=== PATIENT | female | born 1940 | race Caucasian/White ===

== ENCOUNTER → 2017-09-17 09:10 | Outpatient (CLI) | payer MEDICARE, SELFPAY ==
[2017-09-17 13:39] LABS: Basophils % 0.5 % (0.1-2.0); Eosinophils # 0.2 K/mm3 (0.0-0.4); Eosinophils % 3.1 % (0.1-12.0); Hematocrit 42.3 % (37.0-47.0); Hemoglobin 13.1 g/dL (12.2-16.2); Lymphocytes # 2.1 K/mm3 (0.7-4.5); Lymphocytes % 27.1 K/mm3 (10-50); Mean Corpuscular HGB Conc 30.9 g/dL (31.8-35.4); Mean Corpuscular Hemoglobin 29.2 pg (27.0-31.2); Mean Corpuscular Volume 94.6 fl (81-99); Mean Platelet Volume 8.6 fl (7.4-10.4); Monocytes # 0.6 K/mm3 (0.1-1.0); Monocytes % 7.6 % (1.7-9.3); Neutrophils # 4.8 K/mm3 (1.8-7.8); Neutrophils % 61.7 % (37.0-80.0); Platelet Count 346 K/mm3 (142-424); Red Blood Count 4.47 M/mm3 (4.20-5.40); Red Cell Distribution Width 12.1 % (11.5-17.5); White Blood Count 7.8 K/mm3 (4.8-10.8)
[2017-09-17 13:58] LABS: Alanine Aminotransferase 22 U/L (12-78); Albumin Level 3.8 gm/dL (3.4-5.0); Albumin/Globulin Ratio 0.9 (1.1-1.8); Alkaline Phosphatase 78 U/L (46-116); Anion Gap 16.3 mEq/L (5-15); Aspartate Amino Transferase 22 U/L (15-37); Bilirubin,Total 0.4 mg/dL (0.2-1.0); Blood Urea Nitrogen 19 mg/dL (7-18); Calcium 9.4 mg/dL (8.5-10.1); Carbon Dioxide 24 mmol/L (21.0-32.0); Chloride 105 mmol/L (98-107); Creatinine,Serum 0.99 mg/dL (0.55-1.02); Estimated Glomerular Filt Rate 55 ml/min (>60); GFR (African American) 66 ML/MIN (>60); Globulin 4.1 gm/dl (1.3-3.2); Glucose 121 mg/dL (74-106); Potassium 4.3 mmoL/L (3.5-5.1); Sodium 141 mmol/L (136-145); Total Protein,Serum 7.9 gm/dL (6.4-8.2)
[2017-09-18 08:29] LABS: Immunoglobulin A, Qn 320 mg/dL (64-422); Immunoglobulin G, Qn 1476 mg/dL (700-1600)
[2017-09-19 06:44] LABS: Immunoglobulin M, Qn 45 mg/dL (26-217)
[2017-09-19 09:17] LABS: Peripheral Smear Review Scanned Result
== END ==
PROVIDERS: PCP Nurse Practitioner Family; Visit Provider Nurse Practitioner Family
DX: R59.9 Enlarged lymph nodes, unspecified (principal)
CPT/HCPCS: 36415; 80053; 82784; 85025

== ENCOUNTER → 2018-01-21 08:50 | Outpatient (POV) | payer MEDICARE, SELFPAY | PROVIDERS: Visit Provider Nurse Practitioner Acute Care | DX: Z00.00 Encounter for general adult medical examination without abnormal findings (principal) ==

== ENCOUNTER → 2018-04-22 09:29 | Outpatient (POV) | payer MEDICARE, SELFPAY | PROVIDERS: Visit Provider Nurse Practitioner Acute Care | DX: Z00.00 Encounter for general adult medical examination without abnormal findings (principal) ==

== ENCOUNTER → 2018-11-04 08:47 | Outpatient (POV) | payer MEDICARE, SELFPAY | PROVIDERS: Visit Provider Nurse Practitioner Family | DX: Z00.00 Encounter for general adult medical examination without abnormal findings (principal) ==

== ENCOUNTER → 2023-05-24 10:07 | Outpatient (POV) | payer MEDICARE, SELFPAY ==
[2023-05-24 11:02] VITALS: BP 121/87; PULSE 114; RESP 18; O2SAT 99; BMI 26.5
--- NOTE | 2023-05-24 13:18 | EXP.PAIN.OV ---
HPI Data of Consult Patient: new to practice Consult date: 05/24/23 Requesting Physician: Lisbeth Rodriges APRN Primary Care Provider: Hiwot Sarah Consult Narrative Reason for consult: Neck/shoulder pain, low back pain, left hip pain, left leg pain History of present illness: Ms. Cabello is a 83 year old female who presents today as a new patient. She is a referral from Hiwot Sarah's office. Today she rates her pain a 9 out of 10. Patient states her pain is throughout multiple locations including her neck, bilateral shoulders, low back, left hip and left leg. Patient states this has been going on for years unrelated to any specific trauma or injury. 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 Patient does describe this as an aching, throbbing sensation with occasional sharp shooting pains and numbness and tingling. Patient states the pain gets so bad that she does get sick to her stomach. Over the years she has tried Tylenol and ibuprofen along with heat and ice and topicals with no additional relief. Patient has had multiple sessions of physical therapy however this just aggravated and made her symptoms worse. Patient does state the pain interferes with her related to perform activities of daily living such as cooking and cleaning or even sleeping. Patient states that she has had previous fusions in both her neck and her back done by Dr. Danielson. Patient also states she was seeing [facility] for her bilateral shoulder pain who had done x-rays and had talked about possibly doing surgical intervention. Patient states that her PCP was not recommending procedure however and states that she does not need any additional surgeries due to not healing as well due to her age. Patient does state that she did just have a cervical fusion earlier this year and it went fine. Patient does state that she has significant difficulty performing range of motion due to her multiple pain areas. She also states that she is a diabetic and has had injections in the past however they did not typically help as well but they frequently cause her sugar to go up. Patient is interested in any help we may be able to provide. She is prescribed gabapentin 300 mg 3 times a day from her PCP. Her Talat has been reviewed and is appropriate. CC: Lisbeth Rodriges APRN [facility] Disclaimer: The information contained in this section may have been updated after the patient was seen, as this information can be updated by other users. Medical History (Updated 05/24/23 @ 13:28 by Lisbeth Rodriges APRN) Diabetes History of stent insertion of renal artery HLD (hyperlipidemia) HTN (hypertension) Hypothyroidism Osteoarthritis Restless leg syndrome Surgical History (Updated 05/24/23 @ 10:26 by Sophia Vega RN) History of cholecystectomy Previous back surgery Family History (Updated 05/24/23 @ 10:26 by Sophia Vega RN) Other Unknown family medical history Social History Smoking Status: Unknown if ever smoked alcohol intake: never current occupational status: retired Travel in the last 8 weeks: None caffeine: No Review of Systems Review of Systems Review of systems:: pertinent systems reviewed and negative unless documented below Review of systems (narrative): Review of Systems: General: No recent weight changes, no fever, no sleep disturbances Respiratory: No cough, no shortness of air, no recurring pulmonary infections Cardiovascular/peripheral vascular: No chest pain, no palpitations, no edema, no shortness of breath Gastrointestinal: No new onset incontinence, normal bowel movements reported Genitourinary: No new onset incontinence Musculoskeletal: Neck pain, shoulder pain, low back pain, left hip pain, left leg pain Psychiatric: [Normal mood/affect] Neurological: [Denies weakness in extremities], [denies balance issues] Meds Home Medications and Allergies
== END ==
PROVIDERS: PCP Nurse Practitioner Family; Visit Provider Nurse Practitioner Family
DX: G89.4 Chronic pain syndrome; M25.511 Pain in right shoulder; M25.512 Pain in left shoulder; M25.552 Pain in left hip; M50.10 Cervical disc disorder with radiculopathy, unspecified cervical region; M51.16 Intervertebral disc disorders with radiculopathy, lumbar region
CPT/HCPCS: 99202; G0463

== ENCOUNTER → 2023-06-21 10:09 | Outpatient (POV) | payer MEDICARE, SELFPAY ==
--- NOTE | 2023-06-21 10:51 | A.OFFVIS_ITS ---
[facility] Pain Management SOAP Note Subjective:: Patient is a pleasant 83-year-old female who presents today for follow-up. We are currently treating the patient for degenerative disc disease of cervical and lumbar spine with cervical and lumbar radiculopathy symptoms, left hip pain, bilateral shoulder pain, chronic pain syndrome. Today she rates her pain a 10 out of 10. Patient denies any new trauma or injury from our last visit. She states she continues to have chronic pain in her bilateral shoulders neck and low back. Patient does describe this as a aching, throbbing sensation with occasional sharp shooting pains and numbness and tingling. Patient has had previous cervical surgery just in March and did well from this however continues to have pain. Patient was seeing [facility] and had gotten intra-articular injections however this caused her sugar to go up into the 170s and that her PCP told her not to have anything done additionally. Patient states that her primary care provider has also recommended that she not have any surgery due to slowed healing related to her diabetes. At her last visit we did send for a psych eval for possible spinal cord stimulator or pain pump trial however she states she has not heard from this office. Patient states that her pain interferes with her ability perform activities of daily living and that she is interested in anything we can help with. Patient denies any recent lumbar imaging however states that Dr. Danielson's office does have cervical imaging. Patient does states she has a history of stents in her kidneys and that often times medications cause upset stomach and she feels very nauseated. Her Talat has been reviewed and is appropriate. Review of Systems: General: No recent weight changes, no fever, no sleep disturbances Respiratory: No cough, no shortness of air, no recurring pulmonary infections Cardiovascular/peripheral vascular: No chest pain, no palpitations, no edema, no shortness of breath Gastrointestinal: No new onset incontinence, normal bowel movements reported Genitourinary: No new onset incontinence Musculoskeletal: Bilateral shoulder pain, neck pain, low back pain Psychiatric: [Normal mood/affect] Neurological: [Denies weakness in extremities], [denies balance issues] Objective:: Physical Exam: General: Alert and oriented x3, no acute distress, pleasant and cooperative Lungs: Respirations even and unlabored, symmetrical chest expansion Eyes: PERRL Musculoskeletal: Flexion and extension of lumbar [spine] somewhat guarded secondary to pain, [antalgic gait noted] Neurological: Speech clear, no gross sensory deficit Assessment:: Degenerative disc disease of cervical and lumbar spine with cervical and lumbar radiculopathy symptoms, bilateral shoulder pain, left hip pain, chronic pain syndrome Plan:: Patient continues to experience significant pain in multiple areas. I have discussed with the patient that I do still believe that she would benefit from a spinal cord stimulator trial or intrathecal pain pump trial. I have counseled the patient to talk with her family as well as her primary care provider regarding what is in her best interest with her health history and chronic pain symptoms. I will send in a 14-day supply of [place] 5 mg daily and Zofran 4 mg with 30 tablets as needed. Patient will return to clinic in 2 weeks for reevaluation of symptoms and plan of care We will contact [facility] to get a copy of her cervical imaging. Patient has been advised of risks of oversedation with the prescribed medication. Narcan has been offered to the patient in the event of oversedation. Patient has been advised that a family member should also be educated regarding administration of Narcan. Patient has been instructed to contact the clinic with any concerns before the next appointment. Dr. Kay has reviewed this note and agrees with this plan of care. This note was dictated using voice recognition software and make contain errors or omissions. [facility] Disclaimer: The information contained in this section may have been updated after the pat ient was seen, as this information can be updated by other users. Medical History (Updated 05/24/23 @ 13:28 by Lisbeth Rodriges APRN) Diabetes History of stent insertion of renal artery HLD (hyperlipidemia) HTN (hypertension) Hypothyroidism Osteoarthritis Restless leg syndrome Surgical History (Updated 05/24/23 @ 10:26 by Sophia Vega RN) History of cholecystectomy Previous back surgery Family History (Updated 05/24/23 @ 10:26 by Sophia Vega RN) Other Unknown family medical history Social History (Updated 05/24/23 @ 13:30 by Lisbeth Rodriges APRN) Smoking Status: Unknown if ever smoked alcohol intake: never current occupational status: retired Travel in the last 8 weeks: None caffeine: No
[2023-06-21 12:09] VITALS: BP 127/72; PULSE 114; RESP 18; O2SAT 96; BMI 24.4
== END | disposition home or self-care (01) ==
PROVIDERS: PCP Nurse Practitioner Family; Visit Provider Nurse Practitioner Family
DX: M50.10 Cervical disc disorder with radiculopathy, unspecified cervical region (principal); M51.16 Intervertebral disc disorders with radiculopathy, lumbar region; M25.511 Pain in right shoulder; M25.512 Pain in left shoulder; M25.552 Pain in left hip; G89.4 Chronic pain syndrome
CPT/HCPCS: 99212; G0463

== ENCOUNTER → 2023-07-05 09:28 | Outpatient (POV) | payer MEDICARE, SELFPAY ==
--- NOTE | 2023-07-05 10:13 | EXP.PAIN.SOA ---
[facility] Pain Management SOAP Note Subjective:: Patient is a pleasant 83-year-old female who presents today for follow-up. We are currently treating the patient for degenerative disc disease of cervical and lumbar spine with cervical and lumbar radiculopathy symptoms, left hip pain, bilateral shoulder pain, chronic pain syndrome. Today she rates her pain a 9 out of 10. At our last visit the patient was given [place] 5 mg daily with a 2-week supply however the patient states that this made her very sick to her stomach and caused nausea and vomiting with some constipation. Patient states she has stopped taking this. Patient states that she has had her gallbladder taken out in the past and anymore medications upset her stomach. Patient states that even Tylenol arthritis has caused nausea and vomiting. She continues to have chronic pain in her bilateral shoulders, neck and low back. Patient states that she did go for the psychological evaluation however she is still unsure if she wants to proceed forward with this option. Patient does state that the steroid injections that she has had in the past do help however they still have caused her sugar to flare up into the 170s. Patient states she does only take oral medication for her diabetes. Patient does state today that she thinks she might get a different primary care provider because the current one does not want her to do any injections for raising her sugar and does not want her to have any procedures for concern of delayed healing due to her diabetes and advanced age. Her Talat has been reviewed and is appropriate. Review of Systems: General: No recent weight changes, no fever, no sleep disturbances Respiratory: No cough, no shortness of air, no recurring pulmonary infections Cardiovascular/peripheral vascular: No chest pain, no palpitations, no edema, no shortness of breath Gastrointestinal: No new onset incontinence, normal bowel movements reported Genitourinary: No new onset incontinence Musculoskeletal: Bilateral shoulder pain, neck pain, low back pain Psychiatric: [Normal mood/affect] Neurological: [Denies weakness in extremities], [denies balance issues] Objective:: Physical Exam: General: Alert and oriented x3, no acute distress, pleasant and cooperative Lungs: Respirations even and unlabored, symmetrical chest expansion Eyes: PERRL Musculoskeletal: Flexion and extension of cervical [spine] somewhat guarded secondary to pain, [antalgic gait noted] Neurological: Speech clear, no gross sensory deficit Assessment:: Degenerative disc disease of cervical and lumbar spine with cervical and lumbar radiculopathy symptoms left hip pain bilateral shoulder pain Plan:: I have discussed with patient that I do not want her to take any more of the [place] medication due to the nausea and vomiting. I have discussed with the patient that she may benefit most from the spinal cord stimulator trial to see if it helps with her neck and bilateral shoulder pain. At this time we do not have her psychological evaluation back. I have counseled the patient that I will follow-up with her in 1 month regarding the evaluation and if she would like to proceed forward with a trial of either the pain pump or spinal cord stimulator in the future. Patient has been instructed to contact the clinic with any concerns before the next appointment. Dr. Kay has reviewed this note and agrees with this plan of care. This note was dictated using voice recognition software and make contain errors or omissions. [facility] Disclaimer: The information contained in this section may have been updated after the patient was seen, as this information can be updated by other users. Medical History (Updated 05/24/23 @ 13:28 by Lisbeth Rodriges APRN) Diabetes History of stent insertion of renal artery HLD (hyperlipidemia) HTN (hypertension) Hypothyroidism Osteoarthritis Restless leg syndrome Surgical History (Updated 05/24/23 @ 10:26 by Sophia Vega RN) History of cholecystectomy Previous back surgery Family History (Updated 05/24/23 @ 10:26 by Sophia Vega RN) Other Unknown family medical history Social History (Updated 05/24/23 @ 13:30 by Lisbeth Rodriges APRN) Smoking Status: Unknown if ever smoked alcohol intake: never current occupational status: retired Travel in the last 8 weeks: None caffeine: No
[2023-07-05 12:17] VITALS: BP 95/68; PULSE 115; RESP 20; O2SAT 98; BMI 24.2
== END ==
LOC: SC.PAIN 09:29
PROVIDERS: Visit Provider Nurse Practitioner Family
DX: M50.10 Cervical disc disorder with radiculopathy, unspecified cervical region (principal); M51.16 Intervertebral disc disorders with radiculopathy, lumbar region; M25.552 Pain in left hip; M25.511 Pain in right shoulder; M25.512 Pain in left shoulder
CPT/HCPCS: 99212; G0463